=== PATIENT | male | born 1975 | race Caucasian/White ===

== ENCOUNTER 2023-12-10 22:17 | Emergency (ER) | payer SELFPAY ==
[2023-12-10 22:28] VITALS: BP 125/80
--- NOTE | 2023-12-10 23:42 | ED.GENMED ---
History of Present Illness
General
Chief Complaint: Musculo-Skeletal Complaint
Source: patient
Exam Limitations: none
Time Seen by Provider: 12/10/23 22:31
Nursing documentation reviewed up to this point in time: agreed with
History of Present Illness
History of Present Illness:
48-year-old male presenting to the emergency department today with concerns of injury to his left knee when stepping back earlier today. Has had ongoing discomfort worse with ambulation weightbearing since. Denies significant instability. Denies
numbness weakness or additional injury.
Review of Systems
Review of Systems
Allergies reviewed?: Yes
All Other Systems: ROS reviewed and negative except as documented in HPI and ROS
Phy Exam
Physical Exam
Physical Exam:
GENERAL: Alert , in no apparent distress
EYE: pupils equal and reactive
NECK: Supple, no significant adenopathy.
ENT: o/p clr, mmm.
CARDIAC: Regular rate and rhythm .
LUNGS: Clear breath sounds bilaterally, no acute respiratory distress, no wheezes/rales/rhonchi
ABDOMEN: Soft, without focal tenderness, no r/g, no cvat
NEUROLOGICAL: Alert and oriented, no focal neuro deficits
SKIN: Warm and dry, skin intact.
MUSCULOSKELETAL: Swelling and effusion to the left knee tenderness mainly to the medial aspect of the knee increased discomfort with stressing of the MCL 1 joint laxity testing. Neuro vastly intact distally. well perfused.
PSYCH: Normal and appropriate interaction.
Course
Orders/Labs/Results
Orders:
Orders
12/10/23 22:48
CR Knee - Left 4 Or More View* Urgent
Comment:
Reason For Exam: knee swelling, medial knee pain
12/10/23 23:39
Crutches-Treatment ONCE
Knee Immobilizer Left-Treatmen ONCE
Vital Signs
Initial and Last Documented VS:
Initial Vital Signs
Temp Pulse Resp BP Pulse Ox
98.0 F 71 18 125/80 98
12/10/23 22:28 12/10/23 22:28 12/10/23 22:28 12/10/23 22:28 12/10/23 22:28
Last Documented Vital Signs
Temp Pulse Resp BP Pulse Ox
98.0 F 71 18 125/80 98
12/10/23 22:28 12/10/23 22:28 12/10/23 22:28 12/10/23 22:28 12/10/23 22:28
MDM/Problems Addressed
MDM/Problems Addressed:
48-year-old male presenting to the emergency department today with concerns of left-sided knee injury. She is to be consistent clinically with an MCL injury. Patient was given a knee brace and advised to weight-bear as tolerated until orthopedic
follow-up. Return precautions given.
*Critical Care Note
Total Time (30-74mins, 75-104mins- exclusive of procedures): Not Applicable
ED Attending Note
-
Portions of this chart may have been created with voice recognition software.� Occasional wrong word or��sound alike� substitutions may have occurred due to the inherent limitations of voice recognition software.
Discharge Plan
Departure
Patient Disposition: Home (Routine Discharge)
Date of Disposition: 12/10/23
Time of Disposition: 23:48
Patient with high blood pressure during this ER visit?: No
Condition: Good
Covid-19: Not Applicable
Discharge Problem:
Left knee sprain
Instructions: Knee Sprain (DC)
Prescriptions:
No Action
paroxetine HCl 10 MG tablet
10 mg PO DAILY
omeprazole 20 MG capsule,delayed release(DR/EC)
20 mg PO DAILY
Referrals:
Juanjose Morrissey MD [Active] - Follow up in 5-7 days
Becki Blanc I., [Active] -
Jeff Flower MD [Family Provider] -
Activity Restrictions/Additional Instructions:
You came to the emergency department today with concerns of left knee injury. This is potentially your MCL. Please help closely with orthopedics. Return to the emergency department for any worsening, new or concerning symptoms. In the meantime
please rest ice elevate to help with symptoms.
Interventions
Interventions:
*Risk Screen - Suicide Last Done: 12/10/23 23:29
*General Assessment Last Done: 12/10/23 23:29
*Neglect/Abuse Screening Last Done: 12/10/23 23:29
ED- Fall Risk Assessment Last Done: 12/10/23 23:29
*ED COVID-19 Vaccine History Last Done: 12/10/23 23:29
ED-Musculoskeletal Assessment Last Done: 12/10/23 23:29
Discharge Date and Time
Print Language: PUERTO RICAN
== END 2023-12-11 00:02 | disposition home or self-care (01) ==
LOC: EMR 22:17
PROVIDERS: EMERGENCY PHYSICIAN Emergency Medicine
DX: S83.92XA Sprain of unspecified site of left knee, initial encounter (principal); M25.462 Effusion, left knee; X58.XXXA Exposure to other specified factors, initial encounter; Y93.H9 Activity, other involving exterior property and land maintenance, building and construction; K21.9 Gastro-esophageal reflux disease without esophagitis; F41.9 Anxiety disorder, unspecified; Z87.820 Personal history of traumatic brain injury
CPT/HCPCS: 99283; 29505; 73564